=== PATIENT | female | born 1990 | race Caucasian/White ===

== ENCOUNTER 2018-02-21 12:56 | Emergency (ER) | payer OTHER ==
[~2018-02-21] VITALS: Ht 162.6 cm; Wt 95.3 kg
[~2018-02-21 12:56] MED LIST: M/A
== END 2018-02-21 15:41 | disposition home or self-care (01) ==
LOC: ER 12:56
DX: O26.892 Other specified pregnancy related conditions, second trimester (principal); S30.0XXA Contusion of lower back and pelvis, initial encounter; V49.9XXA Car occupant (driver) (passenger) injured in unspecified traffic accident, initial encounter; Y93.89 Activity, other specified; Y92.488 Other paved roadways as the place of occurrence of the external cause; Y99.8 Other external cause status; Z34.02 Encounter for supervision of normal first pregnancy, second trimester

== ENCOUNTER 2018-07-06 12:47 | Inpatient (IN) | payer OTHER ==
[~2018-07-06] VITALS: Ht 162.6 cm; Wt 98.4 kg
[2018-07-12] MEDS ORDERED: PRENATAL 19 TA1 EACH PO (08:59)
== END 2018-07-12 14:00 | disposition home or self-care (01) | DRG 785 ==
LOC: O/R 07-09 06:56 → OB/GYN 07-09 07:00
PROVIDERS: ADMIT Specialist
PROC: 4A1HXCZ Monitoring of Products of Conception, Cardiac Rate, External Approach (ICD-10-PCS; 2018-07-09)
PROC: 0UB70ZZ Excision of Bilateral Fallopian Tubes, Open Approach (ICD-10-PCS; 2018-07-09)
PROC: 10D00Z1 Extraction of Products of Conception, Low, Open Approach (ICD-10-PCS; principal; 2018-07-09 07:00)
DX: O34.211 Maternal care for low transverse scar from previous cesarean delivery (principal); O75.82 Onset (spontaneous) of labor after 37 completed weeks of gestation but before 39 completed weeks gestation, with delivery by (planned) cesarean section; Z30.2 Encounter for sterilization; Z37.0 Single live birth; Z3A.39 39 weeks gestation of pregnancy